=== PATIENT | male | born 1985 | race Caucasian/White ===

== ENCOUNTER 2017-12-17 00:21 | Inpatient (IN) ==
[2017-12-17] MEDS ORDERED: Etomidate Inj 40 MG/20 ML Vial IV.PUSH ONE (00:28)
[2017-12-17] MEDS ORDERED: Sod Chloride 0.9% Inj 1,000 ML IV.SIG ONE (00:34)
[2017-12-17] MEDS ORDERED: Propofol Inj 500 MG/50 ML Vial ONE (00:39)
--- NOTE | 2017-12-17 00:42 | ED ---
HPI General Chief Complaint: Overdose Stated Complaint: Overdose Time Seen by Provider: 12/17/17 00:34 Source: EMS Mode of arrival: EMS Limitations: altered mental status History of Present Illness HPI Narrative: The patient is approximately a [age]-old male who presents to the emergency department via EMS after an apparent overdose. According to EMS the patient met a female vice president business & corporate development earlier tonight, they snorted a white substance at the hotel room and then the patient became unresponsive. EMS states when they arrived the patient was unresponsive, they gave Narcan, total of 2 mg intravenously, the patient awakened. They state the patient was hypoxic with an O2 sat in the 70s via nonrebreather, and vomited several times. Upon arrival the patient is lethargic, responds to painful stimuli, but falls asleep. He was actively vomiting and was noted to be hypoxic in the 70s. No further information is obtainable from the patient. Related Data Allergies Allergy/AdvReac Type Severity Reaction Status Date / Time Unable to Assess Allergy Unknown Anaphylaxis Unverified 12/17/17 00:32 Review of Systems ROS Unobtainable ROS Unobtainable: unobtainable due to mental status PMFSH Medical History Medical History Medical history unknown (Acute) Surgical history unknown (Acute) Social History Social History Substance History: Unable to Obtain Smoking Status: Unknown if ever smoked How Often Do You Have a Drink Containing Alcohol: Unable to Obtain Recent Out of Country Travel within the Last 8 Weeks: No Immunization History Tetanus Immunization: Unable to Assess Hx Influenza Vaccine This Season: Unable to Assess Exam Narrative Exam Narrative: GENERAL: Approximately a [id number]-old male who is mostly nonresponsive, withdrawing to pain, but does not answer questions. Patient was noted to be hypoxic and vomiting. SKIN: Diaphoretic. HEAD: Atraumatic. Normocephalic. EYES: 2 mm bilateral. ENT: No nasal bleeding or discharge. Mucous membranes pink and moist. Dried emesis around the oropharynx NECK: Trachea midline. No JVD. Cardiovascular: Regular, tachycardic. Regular rate and rhythm. No murmur appreciated. RESPIRATORY: Poor respiratory effort. Diminished breath sounds bilaterally. GASTROINTESTINAL: Abdomen soft, non-tender, nondistended. MUSCULOSKELETAL: No obvious deformities. No clubbing. No cyanosis. No edema. NEUROLOGICAL: Lethargic, eyes closed, withdraws to pain. PSYCHIATRIC: Unable to assess per Procedures Intubation Time Out Performed: Yes Sedative: etomidate Mg Given: 20 Paralytic: succinylcholine Mg Given: 100 Laryngoscope: fiber optic video scope ET Tube Size: 8 ET Tube Uncuffed: No Tube Secured Depth (cm): 24 Tube Secured Location: lips Tube Placement Confirmation: visualized tube passing through cords, equal breath sounds bilaterally, no breath sounds over epigastrium and confirmation by capnometry Patient Tolerated Procedure: well Intubation Complications: none Course Initial Documented Vital Signs Pulse Rate 88 12/17/17 00:26 Respiratory Rate 12 12/17/17 00:26 Blood Pressure 151/79 H 12/17/17 00:26 Pulse Oximetry 76 L 12/17/17 00:26 Last Documented Vital Signs Pulse Rate 90 12/17/17 00:34 Respiratory Rate 20 12/17/17 00:35 Blood Pressure 151/79 H 12/17/17 00:26 Pulse Oximetry 90 L 12/17/17 01:05 Critical Care Time Critical Care Time: Yes Total Critical Care Time: 40 Attestation: Aggregate critical care time was 40 minutes. Time to perform other separately billable procedures was not included in the critical care time. My time did not include minutes spent treating any other patients simultaneously or on activities that did not directly contribute to the patient's treatment. The services I provided to this patient were to treat and/or prevent clinically significant deterioration that could result in: Anoxia, hypoxia, aspiration, arrhythmia, . I provided critical care services requiring my management, as noted below: Chart data review, documentation time, medication orders and management, vital sign assessments/reviewing monitor data, ordering and reviewing lab tests, ordering and interpreting/reviewing x-rays and diagnostic studies, care of the patient and discussion of the patient with the admitting physicians. Medical Decision Making MDM Narrative Medical decision making narrative: IV was established, labs are drawn and sent, and the patient was placed on cardiac telemetry monitoring and continuous pulse oximetry monitoring. The patient was lethargic, hypoxic with an O2 sat in the 70s and poor inspiratory effort despite 2 mg of Narcan by EMS. The patient was also vomiting. The patient was intubated to protect his airway and for hypoxia. The patient was placed on a propofol drip. Postintubation chest x- ray was obtained. Postintubation chest x-ray reveals probable ARDS/flash pulmonary edema. The patient was covered with Rocephin and Zithromax. Lactic acid was elevated, most likely secondary to hypoxia. Acetaminophen levels and salicylate levels were noted. I discussed the patient with the on-call spinner fixer, Dr. Oh, who agrees with admission. Medical Screen Exam Complete: Yes Emergency Medical Condition: Yes Differential Diagnosis Differential Diagnosis: Differential diagnosis includes accidental drug ingestion, intentional drug overdose, opiate overdose, heroin use, fentanyl use , hypoxia, aspiration, congestive heart failure, cardiomyopathy, polysubstance ingestion. Lab Data Lab results reviewed: Yes I reviewed the patient's lab results. Result diagrams: 12/17/17 01:05 12/17/17 01:05 Lab Results 12/17/17 12/17/17 12/17/17 Range/Units 01:05 01:05 01:05 WBC 10.3 (4.0-11.0) th/mm3 RBC 5.08 (4.50-5.90) mil/mm3 Hgb 16.2 (13.0-17.0) gm/dL Hct 46.8 (39.0-51.0) % MCV 92.2 (80.0-100.0) fL MCH 31.9 (27.0-34.0) pg MCHC 34.6 (32.0-36.0) % RDW 12.8 (11.6-17.2) % Plt Count 409 (150-450) th/mm3 MPV 8.5 (7.0-11.0) fL Neut % (Auto) 44.1 (16.0-70.0) % Lymph % (Auto) 48.6 H (9.0-44.0) % [place] % (Auto) 6.7 (0.0-8.0) % Eos % (Auto) 0.4 (0.0-4.0) % Baso % (Auto) 0.2 (0.0-2.0) % Neut # (Auto) 4.5 (1.8-7.7) th/mm3 Lymph # (Auto) 5.0 H (1.0-4.8) th/mm3 [place] # (Auto) 0.7 (0.0-0.9) th/mm3 Eos # (Auto) 0.0 (0.0-0.4) th/mm3 Baso # (Auto) 0.0 (0.0-0.2) th/mm3 WBC Differential . Differential Comment Auto diff final PT 10.9 (9.8-11.6) sec INR 1.1 Ratio Puncture Site Patient Temperature O2 Saturation (90-100) % ABG pH (7.380-7.420) ABG pCO2 (38-42) mmHg ABG pO2 (61-120) mmHg ABG HCO3 (22-26) mmol/L ABG O2 Content (12.0-20.0) Vol % ABG Base Excess (-2-2) mmol/L ABG Methemoglobin (0-2) % Jeancarlos Test Hemoglobin (12.0-16.0) G/DL Carboxyhemoglobin (0-4) % O2 Delivery Device Vent Setting Inspired O2 % Critical Value Sodium 148 H (136-145) meq/L Potassium 3.3 L (3.5-5.1) meq/L Chloride 109 H (98-107) meq/L Carbon Dioxide 20.4 L (21.0-32.0) meq/L Anion Gap 19 H (5-15) meq/L BUN 15 (7-18) mg/dL Creatinine 1.44 H (0.60-1.30) mg/dL Estimated GFR 42 L (>89) mL/min Random Glucose 152 H (74-106) mg/dL Lactic Acid (0.4-2.0) mmol/L Calcium 7.8 L (8.5-10.1) mg/dL Total Bilirubin 0.4 (0.2-1.0) mg/dL AST 22 (15-37) U/L ALT 52 (12-78) U/L Alkaline Phosphatase 95 (45-117) U/L Troponin I Less than 0.02 L (0.02-0.05) ng/mL Total Protein 7.8 (6.4-8.2) g/dL Albumin 4.4 (3.4-5.0) g/dL Urine Color (Yellw/Straw) Urine Clarity (Clear) Urine pH (5.0-8.5) Ur Specific [place] (1.002-1.035) Urine Protein (Neg-Trace) mg/dL Urine Glucose (UA) (Negative) mg/dL Urine Ketones (Negative) mg/dL Urine Occult Blood (Negative) Urine Nitrate (Negative) Urine Bilirubin (Negative) Urine Urobilinogen (Less than 2) mg/dL Ur Leukocyte Esterase (Negative) Urine RBC (0-3) /hpf Urine WBC (0-5) /hpf Ur Squamous Epith Cells (0-5) /hpf Urine Bacteria (None) /hpf Urine Mucus (Occasional) /lpf Micro UA Comment Ur Microscopic Review Urine Culture Comments Salicylates (2.8-20.0) mg/dL Urine Opiates Screen (Neg) Acetaminophen Less than 2.0 L (10.0-30.0) mcg/mL Ur Barbiturates Screen (Neg) Ur Amphetamines Screen (Neg) U Benzodiazepines Scrn (Neg) Urine Cocaine Screen (Neg) U Cannabinoids Screen (Neg) Serum Alcohol 186 H (0-5) mg/dL 12/17/17 12/17/17 12/17/17 Range/Units 01:05 01:05 01:17 WBC (4.0-11.0) th/mm3 RBC (4.50-5.90) mil/mm3 Hgb (13.0-17.0) gm/dL Hct (39.0-51.0) % MCV (80.0-100.0) fL MCH (27.0-34.0) pg MCHC (32.0-36.0) % RDW (11.6-17.2) % Plt Count (150-450) th/mm3 MPV (7.0-11.0) fL Neut % (Auto) (16.0-70.0) % Lymph % (Auto) (9.0-44.0) % [place] % (Auto) (0.0-8.0) % Eos % (Auto) (0.0-4.0) % Baso % (Auto) (0.0-2.0) % Neut # (Auto) (1.8-7.7) th/mm3 Lymph # (Auto) (1.0-4.8) th/mm3 [place] # (Auto) (0.0-0.9) th/mm3 Eos # (Auto) (0.0-0.4) th/mm3 Baso # (Auto) (0.0-0.2) th/mm3 WBC Differential Differential Comment PT (9.8-11.6) sec INR Ratio Puncture Site Left radial Patient Temperature 98.6 O2 Saturation 84 L* (90-100) % ABG pH 7.21 L* (7.380-7.420) ABG pCO2 51 H* (38-42) mmHg ABG pO2 61 (61-120) mmHg ABG HCO3 20 L (22-26) mmol/L ABG O2 Content 18.5 (12.0-20.0) Vol % ABG Base Excess -6.9 L (-2-2) mmol/L ABG Methemoglobin 0.9 (0-2) % Jeancarlos Test Present Hemoglobin 15.8 (12.0-16.0) G/DL Carboxyhemoglobin 1.4 (0-4) % O2 Delivery Device Ventilator Vent Setting See comments Inspired O2 100 % Critical Value Yes Sodium (136-145) meq/L Potassium (3.5-5.1) meq/L Chloride (98-107) meq/L Carbon Dioxide (21.0-32.0) meq/L Anion Gap (5-15) meq/L BUN (7-18) mg/dL Creatinine (0.60-1.30) mg/dL Estimated GFR (>89) mL/min Random Glucose (74-106) mg/dL Lactic Acid 6.0 H* (0.4-2.0) mmol/L Calcium (8.5-10.1) mg/dL Total Bilirubin (0.2-1.0) mg/dL AST (15-37) U/L ALT (12-78) U/L Alkaline Phosphatase (45-117) U/L Troponin I (0.02-0.05) ng/mL Total Protein (6.4-8.2) g/dL Albumin (3.4-5.0) g/dL Urine Color (Yellw/Straw) Urine Clarity (Clear) Urine pH (5.0-8.5) Ur Specific [place] (1.002-1.035) Urine Protein (Neg-Trace) mg/dL Urine Glucose (UA) (Negative) mg/dL Urine Ketones (Negative) mg/dL Urine Occult Blood (Negative) Urine Nitrate (Negative) Urine Bilirubin (Negative) Urine Urobilinogen (Less than 2) mg/dL Ur Leukocyte Esterase (Negative) Urine RBC (0-3) /hpf Urine WBC (0-5) /hpf Ur Squamous Epith Cells (0-5) /hpf Urine Bacteria (None) /hpf Urine Mucus (Occasional) /lpf Micro UA Comment Ur Microscopic Review Urine Culture Comments Salicylates 1.9 L (2.8-20.0) mg/dL Urine Opiates Screen (Neg) Acetaminophen (10.0-30.0) mcg/mL Ur Barbiturates Screen (Neg) Ur Amphetamines Screen (Neg) U Benzodiazepines Scrn (Neg) Urine Cocaine Screen (Neg) U Cannabinoids Screen (Neg) Serum Alcohol (0-5) mg/dL 12/17/17 12/17/17 Range/Units 01:30 01:30 WBC (4.0-11.0) th/mm3 RBC (4.50-5.90) mil/mm3 Hgb (13.0-17.0) gm/dL Hct (39.0-51.0) % MCV (80.0-100.0) fL MCH (27.0-34.0) pg MCHC (32.0-36.0) % RDW (11.6-17.2) % Plt Count (150-450) th/mm3 MPV (7.0-11.0) fL Neut % (Auto) (16.0-70.0) % Lymph % (Auto) (9.0-44.0) % [place] % (Auto) (0.0-8.0) % Eos % (Auto) (0.0-4.0) % Baso % (Auto) (0.0-2.0) % Neut # (Auto) (1.8-7.7) th/mm3 Lymph # (Auto) (1.0-4.8) th/mm3 [place] # (Auto) (0.0-0.9) th/mm3 Eos # (Auto) (0.0-0.4) th/mm3 Baso # (Auto) (0.0-0.2) th/mm3 WBC Differential Differential Comment PT (9.8-11.6) sec INR Ratio Puncture Site Patient Temperature O2 Saturation (90-100) % ABG pH (7.380-7.420) ABG pCO2 (38-42) mmHg ABG pO2 (61-120) mmHg ABG HCO3 (22-26) mmol/L ABG O2 Content (12.0-20.0) Vol % ABG Base Excess (-2-2) mmol/L ABG Methemoglobin (0-2) % Jeancarlos Test Hemoglobin (12.0-16.0) G/DL Carboxyhemoglobin (0-4) % O2 Delivery Device Vent Setting Inspired O2 % Critical Value Sodium (136-145) meq/L Potassium (3.5-5.1) meq/L Chloride (98-107) meq/L Carbon Dioxide (21.0-32.0) meq/L Anion Gap (5-15) meq/L BUN (7-18) mg/dL Creatinine (0.60-1.30) mg/dL Estimated GFR (>89) mL/min Random Glucose (74-106) mg/dL Lactic Acid (0.4-2.0) mmol/L Calcium (8.5-10.1) mg/dL Total Bilirubin (0.2-1.0) mg/dL AST (15-37) U/L ALT (12-78) U/L Alkaline Phosphatase (45-117) U/L Troponin I (0.02-0.05) ng/mL Total Protein (6.4-8.2) g/dL Albumin (3.4-5.0) g/dL Urine Color Yellow (Yellw/Straw) Urine Clarity Hazy H (Clear) Urine pH 5.0 (5.0-8.5) Ur Specific [place] 1.023 (1.002-1.035) Urine Protein 30 H (Neg-Trace) mg/dL Urine Glucose (UA) Negative (Negative) mg/dL Urine Ketones Negative (Negative) mg/dL Urine Occult Blood Small H (Negative) Urine Nitrate Negative (Negative) Urine Bilirubin Negative (Negative) Urine Urobilinogen Less than 2 (Less than 2) mg/dL Ur Leukocyte Esterase Negative (Negative) Urine RBC 6 H (0-3) /hpf Urine WBC 2 (0-5) /hpf Ur Squamous Epith Cells <1 (0-5) /hpf Urine Bacteria Rare H (None) /hpf Urine Mucus Few H (Occasional) /lpf Micro UA Comment Cath-culture ind Ur Microscopic Review Not Reportable Urine Culture Comments Cath-cult indicated Salicylates (2.8-20.0) mg/dL Urine Opiates Screen Neg (Neg) Acetaminophen (10.0-30.0) mcg/mL Ur Barbiturates Screen Neg (Neg) Ur Amphetamines Screen Neg (Neg) U Benzodiazepines Scrn Neg (Neg) Urine Cocaine Screen Neg (Neg) U Cannabinoids Screen Neg (Neg) Serum Alcohol (0-5) mg/dL Imaging Data Attestation: I personally reviewed and interpreted this imaging study as follows : My impression: Probable ARDS and/or flash pulmonary edema Radiologist's impression: Chest X-Ray 12/17/17 00:34 CONCLUSION: Bilateral pulmonary infiltrates. Discharge Plan Discharge Disposition Patient Disposition: 30 Still Patient Discharge Condition Condition: Critical Discharge Details Diagnosis: Acute respiratory distress, Hypoxia, Acidosis, lactic Physicians Team ED Provider: Edilson Mojica Primary Care Provider: UNKNOWN, Discharge Interventions Interventions: Vital Signs Last Done: 12/17/17 00:36 Status ED Status: Pending Admission
[2017-12-17] MEDS: Propofol 1000 mg/100 ml Inj 1,000 MG/100 ML BOTTLE IV.CONT PRN ×2 (00:43→07:47)
--- NOTE | 2017-12-17 01:18 | XR ---
EXAM DATE: 12/17/2017 1:15 AM EDT AGE/SEX: 89 years / Male INDICATIONS: E-T Tube placement. Possible overdose. CLINICAL DATA: This is the patient's initial encounter. Patient reports that signs and symptoms have been present for 1 day and indicates a pain score of Nonresponsive. MEDICAL/SURGICAL HISTORY: Non-responsive. Non-responsive. COMPARISON: No prior exams available for comparison. FINDINGS: A single AP view of the chest demonstrates bilateral pulmonary infiltrates. No effusions. Heart is no rmal in size. Tip the endotracheal tube 3 cm from the rob. Nasogastric tube coiled in the stomach. CONCLUSION: Bilateral pulmonary infiltrates. Electronically signed by: Durga Conway MD 12/17/2017 1:17 AM EDT
[2017-12-17 01:22] LABS: Baso % (Auto) 0.2 % (0.0-2.0); Eos % (Auto) 0.4 % (0.0-4.0); Hematocrit 46.8 % (39.0-51.0); Hemoglobin 16.2 gm/dL (13.0-17.0); Lymph % (Auto) 48.6 % (9.0-44.0); Mean Corpuscular HGB Conc 34.6 % (32.0-36.0); Mean Corpuscular Hemoglobin 31.9 pg (27.0-34.0); Mean Corpuscular Volume 92.2 fL (80.0-100.0); Mean Platelet Volume 8.5 fL (7.0-11.0); Mono # (Auto) 0.7 th/mm3 (0.0-0.9); Mono % (Auto) 6.7 % (0.0-8.0); Neut # (Auto) 4.5 th/mm3 (1.8-7.7); Neut % (Auto) 44.1 % (16.0-70.0); Platelet Count 409 th/mm3 (150-450); Red Blood Count 5.08 mil/mm3 (4.50-5.90); Red Cell Distribution Width 12.8 % (11.6-17.2); White Blood Count 10.3 th/mm3 (4.0-11.0)
[2017-12-17 01:32] LABS: INR 1.1 Ratio; Prothrombin Time 10.9 sec (9.8-11.6)
[2017-12-17] MEDS ORDERED: Azithromycin Inj 500 MG in Sodium Chlor 0.9% Inj 250 ML IV.SIG ONE (01:38)
[2017-12-17 01:39] LABS: ABG Base Excess -6.9 mmol/L (-2-2); ABG PCO2 51 mmHg (38-42); ABG PO2 61 mmHg (61-120)
[2017-12-17 01:42] LABS: Albumin 4.4 g/dL (3.4-5.0); Anion Gap 19 meq/L (5-15); Aspartate Aminotransferase 22 U/L (15-37); Blood Urea Nitrogen 15 mg/dL (7-18); Calcium 7.8 mg/dL (8.5-10.1); Carbon Dioxide 20.4 meq/L (21.0-32.0); Chloride 109 meq/L (98-107); Glomerular Filtration Rate 42 mL/min (>89); Glucose,Random 152 mg/dL (74-106); Potassium 3.3 meq/L (3.5-5.1); Sodium 148 meq/L (136-145)
[2017-12-17 01:48] LABS: Alanine Aminotransferase 52 U/L (12-78); Alkaline Phosphatase 95 U/L (45-117); Total Protein 7.8 g/dL (6.4-8.2)
[2017-12-17 01:50] LABS: Alcohol 186 mg/dL (0-5)
[2017-12-17 02:01] LABS: Amphetamine Screen,Urine Neg (Neg); Bacteria,Urine Rare /hpf; Barbiturate Screen,Urine Neg (Neg); Bilirubin,Urine Negative (Negative); Cannabinoid Screen,Urine Neg (Neg); Clarity,Urine Hazy (Clear); Cocaine Screen,Urine Neg (Neg); Color,Urine Yellow (Yellw/Straw); Glucose,Urine (UA) Negative (Negative); Leukocyte Esterase,Urine Negative (Negative); Mucus,Urine Few /lpf (Occasional); Nitrite,Urine Negative (Negative); Specific Gravity,Urine 1.023 (1.002-1.035); Squamous Epithelial Cell,Urine <1 /hpf (0-5)
[2017-12-17 02:06] LABS: Opiate Screen,Urine Neg (Neg)
[2017-12-17] MEDS ORDERED: Morphine Inj 4 MG/ML Vial IV.PUSH PRN (02:49)
[2017-12-17] MEDS ORDERED: Bisacodyl 10 MG Supp RECTAL PRN (02:49)
--- NOTE | 2017-12-17 03:04 | P.HPCC ---
History of Present Illness Primary Care Physician: UNKNOWN History of Present Illness: 32 [id number] male presents via EMS after an apparent overdose. According to EMS the patient met a female trouble locator test desk earlier tonight, they snorted a white substance at the hotel room and then the patient became unresponsive. EMS states when they arrived the patient was unresponsive, they gave Narcan, total of 2 mg intravenously, the patient awakened. They state the patient was hypoxic with an O2 sat in the 70s via nonrebreather, and vomited several times. Upon arrival the patient was lethargic, responds to painful stimuli, but falls asleep. He was actively vomiting and was noted to be hypoxic in the 70s. The patient was intubated by ED attending, will be protection and respiratory failure. Chest x-ray shows pattern of flash pulmonary edema typical for heroine overdose. No further information is obtainable from the patient. Inpatient Certification: I certify that the inpatient services were ordered in accordance with Medicare regulations governing the order. This includes certification that hospital inpatient services are reasonable and necessary and in the case of services not specified as inpatient-only under 42 CFR 419.22(n), that they are appropriately provided as inpatient services in accordance to with the 2-midnight benchmark under 43 CFR 412.3(e) Estimated Total Length of Stay (Days): 5 Plans for Post Hospital Care: Not yet determined Review of Systems unobtainable due to endotracheal tube PMFSH - History History Provided By: Trauma Director / EMT - Medical History Medical History: Medical History (Last Updated 12/17/17 @ 00:28 by Magalys [place]) Medical history unknown Surgical history unknown - Tobacco History Smoking Status: Unknown if ever smoked - Alcohol History How Often Do You Have a Drink Containing Alcohol: Unable to Obtain - Substance Use History Substance History: Unable to Obtain - Travel History Recent Travel Out of the Country Within the Last 8 Weeks: No - Immunization History Tetanus Immunization: Unable to Assess Hx Influenza Vaccine This Season: Unable to Assess Medications and Allergies Active Medications: Active Medications Acetaminophen (Tylenol) 650 mg PO Q6H PRN PRN Reason: PAIN 1-10 AND/OR FEVER >101F Al Hydroxide/Mg Hydroxide (Milk Of Magnesia Liq) 30 ml PO Q12H PRN PRN Reason: Mild Constipation Albuterol (Duoneb Neb (Prn)) 1 ampul NEB Q2HR NEB PRN PRN Reason: WHEEZING Bisacodyl (Dulcolax Supp) 10 mg RECTAL DAILY PRN PRN Reason: SEVERE CONSITIPATION Chlorhexidine Gluconate (Peridex 0.12% Oral Kit) 15 ml OROPHARYNG BID@0800, 2000 [facility] Chlorhexidine Gluconate (Chlorhexidine 2% Cloth) 3 pack TOPICAL DAILY@0400 DIANN Stop: 12/22/17 03:59 Chlorhexidine Gluconate (Chlorhexidine 2% Cloth) 3 pack TOPICAL DAILY@0400 PRN PRN Reason: Extra cloth needed Stop: 12/22/17 03:59 Enoxaparin Sodium (Lovenox Inj) 40 mg SQ Q24H [facility] Famotidine (Pepcid Pf Inj) 20 mg IV.PUSH Q12HR [facility] Propofol (Diprivan 1000 Mg/100 Ml Inj) 1,000 mg in 100 mls @ 2.449 mls/hr IV.CONT TITRATE PRN; Protocol PRN Reason: Per Protocol Last Titration: 12/17/17 02:33 Dose: 20 mcg/kg/min, 9.8 mls/hr Sodium Chloride (Ns Inj) 1,000 mls @ 84 mls/hr IV.CONT .[id number] [facility] Lactulose (Lactulose Liq) 30 ml PO DAILY PRN PRN Reason: SEVERE CONSITIPATION Metoclopramide HCl (Reglan Inj) 5 mg IV.PUSH Q6HR DIANN; Protocol Morphine Sulfate (Morphine Inj) 2 mg IV.PUSH Q2H PRN PRN Reason: PAIN SCALE 6 TO 10 Ondansetron HCl (Zofran Inj) 4 mg IV.PUSH Q6H PRN PRN Reason: NAUSEA OR VOMITING Senna/Docusate Sodium (Ladonna-Colace) 1 tab PO BID [facility] Sennosides (Senokot) 17.2 mg PO Q12H PRN PRN Reason: Moderate Constipation Sodium Chloride (Ns Flush) 2 ml IV.FLUSH BID [facility] Sodium Chloride (Ns Flush) 2 ml IV.FLUSH PRN PRN PRN Reason: FLUSH AFTER USING IV ACCESS Allergies Allergy/AdvReac Type Severity Reaction Status Date / Time Unable to Assess Allergy Unknown Anaphylaxis Unverified 12/17/17 00:32 Results - Labs CBC & Chem 7: 12/17/17 01:05 12/17/17 01:05 Labs: Short CBC 12/17/17 Range/Units 01:05 WBC 10.3 (4.0-11.0) th/mm3 Hgb 16.2 (13.0-17.0) gm/dL Hct 46.8 (39.0-51.0) % Plt Count 409 (150-450) th/mm3 BMP 12/17/17 01:05 Sodium 148 H Potassium 3.3 L Chloride 109 H Carbon Dioxide 20.4 L BUN 15 Creatinine 1.44 H Calcium 7.8 L Cardiac Enzymes 12/17/17 Range/Units 01:05 Troponin I Less than 0.02 L (0.02-0.05) ng/mL Liver Function 12/17/17 Range/Units 01:05 Total Bilirubin 0.4 (0.2-1.0) mg/dL AST 22 (15-37) U/L ALT 52 (12-78) U/L Alkaline Phosphatase 95 (45-117) U/L Albumin 4.4 (3.4-5.0) g/dL Urine 12/17/17 Range/Units 01:30 Urine Color Yellow (Yellw/Straw) Urine Clarity Hazy H (Clear) Urine pH 5.0 (5.0-8.5) Ur Specific [place] 1.023 (1.002-1.035) Urine Protein 30 H (Neg-Trace) mg/dL Urine Glucose (UA) Negative (Negative) mg/dL - Imaging Impressions Chest X-Ray 12/17/17 00:34 CONCLUSION: Bilateral pulmonary infiltrates. Exam Vital signs: Vital Signs 12/17/17 00:26 12/17/17 00:34 12/17/17 00:35 Temperature 98.0 F Pulse Rate 88 90 Respiratory Rate 12 20 Blood Pressure 151/79 H Pulse Oximetry 76 L 80 L 12/17/17 00:36 12/17/17 00:48 12/17/17 01:05 Temperature Pulse Rate 102 H Respiratory Rate 18 Blood Pressure 155/60 H Pulse Oximetry 89 L 92 L 90 L 12/17/17 01:35 12/17/17 02:00 Temperature Pulse Rate 98 H 105 H Respiratory Rate 20 20 Blood Pressure 140/61 143/55 H Pulse Oximetry 90 L 90 L Intake & Output 12/16/17 12/16/17 12/17/17 06:59 18:59 06:59 Weight 81.647 kg - Constitutional mild distress - Routine HEENT Exam Head: Present: normocephalic, atraumatic Eye: Present: PERRL ENT: Present: mucous membranes moist - Routine Neck Exam Absent: JVD, carotid bruit - Routine Respiratory Exam Present: patient mechanically ventilated, rhonchi. Absent: stridor, wheezes - Routine Cardiovascular Exam Present: RRR, S1, S2 - Routine Abdominal Exam Present: soft, normoactive bowel sounds. Absent: tenderness, distended - Routine Extremities Exam Absent: cyanosis, clubbing, edema - Routine Skin Exam Present: intact. Absent: cyanosis, erythema - Routine Neurological Exam Present: moving all extremities Caprini VTE Risk Assessment Caprini VTE Risk Assessment: Moderate/High Risk (score >= 2) Caprini Risk Assessment Model: Point Value = 1 Point Value = 2 Point Value = 3 Point Value = 5 Age 41-60 Minor surgery BMI > 25 kg/m2 Swollen legs Varicose veins or History of unexplained or recurrent spontaneous Oral contraceptives or hormone replacement Sepsis (< 1 month) Serious lung disease, including pneumonia (< 1 month) Abnormal pulmonary function Acute myocardial infarction Congestive heart failure (< 1 month) History of inflammatory bowel disease Medical patient at bed rest Age 61-74 Arthroscopic surgery Major open surgery (> 45 min) Laparoscopic surgery (> 45 min) Malignancy Confined to bed (> 72 hours) Immobilizing plaster cast Central venous access Age >= 75 History of VTE Family history of VTE Factor V Leiden Prothrombin [id number] Lupus anticoagulant Anticardiolipin antibodies Elevated serum homocysteine Heparin-induced thrombocytopenia Other congenital or acquired thrombophilia Stroke (< 1 month) Elective arthroplasty Hip, pelvis, or leg fracture Acute spinal cord injury (< 1 month) Prophylaxis Regimen: Total Risk Factor Score Risk Level Prophylaxis Regimen 0-1 Low Early ambulation 2 Moderate Order ONE of the following: *Sequential Compression Device (SCD) *Heparin 5000 units SQ BID 3-4 Higher Order ONE of the following medications: *Heparin 5000 units SQ TID *Enoxaparin/Lovenox 40 mg SQ daily (WT < 150 kg, CrCl > 30 mL/min) *Enoxaparin/Lovenox 30 mg SQ daily (WT < 150 kg, CrCl > 10-29 mL/min) *Enoxaparin/Lovenox 30 mg SQ BID (WT < 150 kg, CrCl > 30 mL/min) AND/OR *Sequential Compression Device (SCD) 5 or more Highest Order ONE of the following medications: *Heparin 5000 units SQ TID (Preferred with Epidurals) *Enoxaparin/Lovenox 40 mg SQ daily (WT < 150 kg, CrCl > 30 mL/min) *Enoxaparin/Lovenox 30 mg SQ daily (WT < 150 kg, CrCl > 10-29 mL/min) *Enoxaparin/Lovenox 30 mg SQ BID (WT < 150 kg, CrCl > 30 mL/min) AND *Sequential Compression Device (SCD) Assessment and Plan - Assessment and Plan Plan: Respiratory failure -Intubated for airway protection -Mechanical ventilation -Vent bundle -SBT daily Altered mental status -Toxicology screen pending -Most likely heroine overdose -Supportive care Pulmonary edema -Heroine overdose -Mechanical ventilation and supportive care Heroine abuse -Monitor for withdrawal -Neuro checks per unit protocol DVT GI prophylaxis -Teds SCDs -Subcu Lovenox -Pepcid 35 minutes of critical care
[2017-12-17] MEDS ORDERED: Potassium Chlor 40 mEq Premix 40 MEQ/100 ML PIGGYBACK IV.SIG PRN ×2 (03:07)
[2017-12-17] MEDS ORDERED: Potassium Phosphate 500 MG Soluble Tablet PO PRN ×2 (03:07)
[2017-12-17] MEDS ORDERED: Magnesium Sulfate Inj 4 GM in Sodium Chlor 0.9% Inj 92 ML IV.SIG PRN (03:07)
[2017-12-17] MEDS ORDERED: Potassium Phosphate Inj 30 MMOL in Sodium Chlor 0.9% Inj 250 ML IV.SIG PRN (03:07)
[2017-12-17] MEDS ORDERED: Sodium Phosphate Inj 30 MMOL in Sodium Chlor 0.9% Inj 250 ML IV.SIG PRN (03:07)
[2017-12-17] MEDS ORDERED: Potassium Chloride 25 MEQ Effervescent Tablet PO PRN (03:07)
[2017-12-17] MEDS ORDERED: Magnesium Oxide 400 MG Tablet PO PRN (03:07)
[2017-12-17] MEDS ORDERED: Magnesium Sulfate Inj 2 GM in Sodium Chlor 0.9% Inj 96 ML IV.SIG PRN (03:07)
[2017-12-17] MEDS ORDERED: Potassium Chlor 20 mEq Premix 20 MEQ/100 ML PIGGYBACK IV.SIG PRN (03:07)
[2017-12-17] MEDS ORDERED: Midazolam 50 MG/50 ML Inj 50 MG/50 ML BAG IV.CONT PRN (03:50)
[2017-12-17] MEDS ORDERED: Chlorhexidine Gluconate 2% 1 Pack (2 Cloths) TOPICAL PRN (04:00)
[2017-12-17] MEDS: Sod Chloride 0.9% Inj 1,000 ML IV.CONT SCH ×2 (04:55→17:12)
[2017-12-17] MEDS: Chlorhexidine Gluconate 2% 1 Pack (2 Cloths) TOPICAL SCH (04:55)
[2017-12-17] MEDS: Enoxaparin Inj 40 MG/0.4 ML Syringe SQ SCH (04:57)
[2017-12-17] MEDS: Oral Hygiene Kit OROPHARYNG SCH ×3 (04:57→17:11)
[2017-12-17] MEDS: Potassium Chlor 20 mEq Premix 20 MEQ/100 ML PIGGYBACK IV.SIG PRN ×2 (05:13→07:30)
[2017-12-17 06:47] LABS: ABG Base Excess -5.8 mmol/L (-2-2); ABG PCO2 38 mmHg (38-42); ABG PO2 102 mmHg (61-120)
[2017-12-17] MEDS: Famotidine PF Inj 20 MG/2 ML Vial IV.PUSH SCH ×2 (08:01→21:07)
[2017-12-17] MEDS: Chlorhexidine 0.12% Oral Kit 15 ML UDC OROPHARYNG SCH ×2 (08:54→20:04)
[2017-12-17] MEDS: Senna/Docusate Sodium 8.6/50 MG Tablet PO SCH ×2 (08:54→21:07)
[2017-12-17] MEDS: Acetaminophen 325 MG Tablet PO PRN ×2 (10:21→21:06)
[2017-12-17] MEDS: Piperacil/Tazo 3.375 GM Premix 50 ML IV.SIG SCH ×2 (12:02→17:46)
--- NOTE | 2017-12-17 15:33 | ECG ---
Date Performed: 12/17/2017 Time Performed: 09:27:11 PTAGE: 89 years EKG: SINUS TACHYCARDIA ABNORMAL RHYTHM ECG NO PREVIOUS TRACING DOCTOR: Taiwo Bella Interpretating Date/Time 12/17/2017 15:31:34
[2017-12-18] MEDS: Oral Hygiene Kit OROPHARYNG SCH ×4 (00:10→15:47)
[2017-12-18] MEDS: Piperacil/Tazo 3.375 GM Premix 50 ML IV.SIG SCH ×4 (02:10→17:18)
[2017-12-18] MEDS: Enoxaparin Inj 40 MG/0.4 ML Syringe SQ SCH (02:31)
[2017-12-18 04:07] LABS: Baso % (Auto) 0.3 % (0.0-2.0); Eos # (Auto) 0.2 th/mm3 (0.0-0.4); Eos % (Auto) 1.4 % (0.0-4.0); Hematocrit 38.4 % (39.0-51.0); Hemoglobin 13.2 gm/dL (13.0-17.0); Lymph # (Auto) 1.3 th/mm3 (1.0-4.8); Mean Corpuscular HGB Conc 34.4 % (32.0-36.0); Mean Corpuscular Hemoglobin 31.4 pg (27.0-34.0); Mean Corpuscular Volume 91.3 fL (80.0-100.0); Mean Platelet Volume 8.1 fL (7.0-11.0); Mono # (Auto) 0.6 th/mm3 (0.0-0.9); Mono % (Auto) 4.7 % (0.0-8.0); Neut # (Auto) 10.9 th/mm3 (1.8-7.7); Neut % (Auto) 83.6 % (16.0-70.0); Platelet Count 213 th/mm3 (150-450); Red Blood Count 4.21 mil/mm3 (4.50-5.90); Red Cell Distribution Width 12.6 % (11.6-17.2); White Blood Count 13.1 th/mm3 (4.0-11.0)
[2017-12-18 04:11] LABS: INR 1.2 Ratio; Prothrombin Time 12.5 sec (9.8-11.6)
[2017-12-18] MEDS: Chlorhexidine Gluconate 2% 1 Pack (2 Cloths) TOPICAL SCH (04:18)
[2017-12-18 04:31] LABS: Alanine Aminotransferase 33 U/L (12-78); Albumin 3.4 g/dL (3.4-5.0); Alkaline Phosphatase 71 U/L (45-117); Anion Gap 8 meq/L (5-15); Aspartate Aminotransferase 17 U/L (15-37); Blood Urea Nitrogen 16 mg/dL (7-18); Calcium 8.5 mg/dL (8.5-10.1); Carbon Dioxide 29.5 meq/L (21.0-32.0); Chloride 105 meq/L (98-107); Glomerular Filtration Rate 58 mL/min (>89); Glucose,Random 136 mg/dL (74-106); Phosphorus 1.7 mg/dL (2.5-4.9); Potassium 3.7 meq/L (3.5-5.1); Sodium 142 meq/L (136-145); Total Protein 6.3 g/dL (6.4-8.2)
--- NOTE | 2017-12-18 07:24 | P.PN ---
Subjective Interval history: Patient seen and examined this morning, their vitals are stable and the patient is afebrile. Patient drowsy but awakens easily. States he thought he was doing heroin, which he has done in the past, but it was something else. He has no idea what kind of drug it was. He denies thoughts of wanting to harm himself. Reports the nasal canula makes it hard to breath. He reports also consuming alcohol while doing the drugs. Physical Exam Vital signs: Vital Signs 12/17/17 08:00 12/17/17 08:27 12/17/17 09:00 Temperature 100.5 F H Pulse Rate 117 H 116 H Respiratory Rate 9 L 18 Blood Pressure 117/67 Pulse Oximetry 93 L 94 L 12/17/17 12:00 12/17/17 16:00 12/17/17 20:00 Temperature 99.6 F 99.5 F 98.7 F Pulse Rate 121 H 106 H 90 Respiratory Rate 30 H 24 22 Blood Pressure 138/68 127/71 117/71 Pulse Oximetry 93 L 94 L 97 12/17/17 20:44 12/17/17 21:36 12/17/17 22:00 Temperature Pulse Rate 85 Respiratory Rate 18 Blood Pressure Pulse Oximetry 95 12/18/17 00:00 12/18/17 02:00 12/18/17 04:00 Temperature Pulse Rate 83 81 71 Respiratory Rate 18 18 Blood Pressure Pulse Oximetry Intake & Output 12/17/17 12/18/17 12/18/17 18:59 06:59 18:59 Intake Total 1200 / 1200 175 / 175 Output Total 1949 Balance -750 / -750 175 / 175 Intake: IV 350 / 350 175 / 175 Diprivan 1000 mg/100 ml Inj 1, 100 / 100 25 / 25 000 mg In 100 ml @ 5 MCG/KG/MIN 2.449 mls/hr IV.CONT TITRATE PRN Rx#:[id number] Zosyn 3.375 GM Premix 50 ML @ 50 / 50 150 / 150 100 mls/hr IV.SIG Q6H DIANN Rx#: [id number] KCl 20 mEq Premix Inj 20 meq In 200 / 200 100 ml @ 50 mls/hr IV.SIG Q2H PRN Rx#:[id number] Oral 850 / 850 Output: Urine Amount (Catheter) 1949 Indwelling Urethral Catheter 1949 Narrative: GENERAL: Well-appearing, no acute distress, drowsy but awakens easily SKIN: Warm and dry. HEAD: Normocephalic. EYES: No scleral icterus. No injection or drainage. NECK: Supple, trachea midline. No JVD or lymphadenopathy. CARDIOVASCULAR: Regular rate and rhythm without murmurs, gallops, or rubs. RESPIRATORY: Breath sounds equal bilaterally. No accessory muscle use. GASTROINTESTINAL: Abdomen soft, non-tender, nondistended. MUSCULOSKELETAL: No cyanosis, or edema. - Urinary Catheter Management Indwelling Urethral Catheter Cath placed during this visit: yes, but has since been removed by the nurse Reason for continuing: Decision to DC catheter Insertion date: 12/17/17 Insertion time: 01:00 Removal date: 12/17/17 Removal time: 17:45 Results - Labs CBC & Chem 7: 12/18/17 03:50 12/18/17 03:50 Laboratory Results - last 24 hr 12/18/17 12/18/17 12/18/17 03:50 03:50 03:50 WBC 13.1 H RBC 4.21 L Hgb 13.2 D Hct 38.4 L MCV 91.3 MCH 31.4 MCHC 34.4 RDW 12.6 Plt Count 213 D MPV 8.1 Neut % (Auto) 83.6 H Lymph % (Auto) 10.0 [place] % (Auto) 4.7 Eos % (Auto) 1.4 Baso % (Auto) 0.3 Neut # (Auto) 10.9 H Lymph # (Auto) 1.3 [place] # (Auto) 0.6 Eos # (Auto) 0.2 Baso # (Auto) 0.0 WBC Differential . Differential Comment Auto diff final PT 12.5 H INR 1.2 Sodium 142 Potassium 3.7 Chloride 105 Carbon Dioxide 29.5 D Anion Gap 8 BUN 16 Creatinine 1.10 Estimated GFR 58 L Random Glucose 136 H Lactic Acid Calcium 8.5 Phosphorus 1.7 L Magnesium 2.0 Total Bilirubin 1.7 H AST 17 ALT 33 Alkaline Phosphatase 71 Total Protein 6.3 L D Albumin 3.4 D 12/18/17 03:50 WBC RBC Hgb Hct MCV MCH MCHC RDW Plt Count MPV Neut % (Auto) Lymph % (Auto) [place] % (Auto) Eos % (Auto) Baso % (Auto) Neut # (Auto) Lymph # (Auto) [place] # (Auto) Eos # (Auto) Baso # (Auto) WBC Differential Differential Comment PT INR Sodium Potassium Chloride Carbon Dioxide Anion Gap BUN Creatinine Estimated GFR Random Glucose Lactic Acid 1.1 Calcium Phosphorus Magnesium Total Bilirubin AST ALT Alkaline Phosphatase Total Protein Albumin Microbiology 12/17/17 03:50 Sputum - Endotracheal Gram Stain - Final - Imaging ITS Impressions Chest X-Ray 12/17/17 00:34 CONCLUSION: Bilateral pulmonary infiltrates. Assessment and Plan - Plan In summary this is a Ihsan Fierro who was brought to [place] ED by EMS for apparent overdose. Patient was apparently found at a hotel room unresponsive, he was given IV Narcan and the patient awakens. Upon arrival to the ER he was lethargic, actively vomiting, and saturating in the 70s. He was intubated. Chest x-ray showed flash pulmonary edema, typically seen for heroine overdose. Patient was admitted by critical care, and then care transferred to hospitalist on 12/18. Respiratory failure Flash pulmonary edema - s/p extubation - resp care Altered mental status Alcohol intoxication Heroin intoxication -Tox screen significant for a blood alcohol level 138 - [facility] protocol - Monitor on telemetry - Suicide prevautions - likely psych consult when patient is more awake - Blood cultures obtained - UA suggestive of UTI, UC pending, currently on abx Bilateral pulmonary infiltrates ?Aspiration PNA - continue Zosyn - sputum culture pending DVT proph - bilat SCDS, lovenox Discharge Planning: Further reccs pending clinical stabilization. Watch in ICU today, if remains stable overnight likely transfer to medical floor tomorrow.
[2017-12-18] MEDS ORDERED: LORazepam 1 MG Tablet PO PRN (07:59)
[2017-12-18] MEDS ORDERED: Haloperidol Inj 5 MG/ML Ampul IV.PUSH PRN (07:59)
[2017-12-18] MEDS: Chlorhexidine 0.12% Oral Kit 15 ML UDC OROPHARYNG SCH ×2 (08:45→22:12)
[2017-12-18] MEDS: Famotidine PF Inj 20 MG/2 ML Vial IV.PUSH SCH ×2 (08:51→20:25)
[2017-12-18] MEDS: Senna/Docusate Sodium 8.6/50 MG Tablet PO SCH ×2 (08:52→20:24)
[2017-12-18] MEDS: Acetaminophen 325 MG Tablet PO PRN (20:24)
[2017-12-19] MEDS: Piperacil/Tazo 3.375 GM Premix 50 ML IV.SIG SCH ×4 (00:55→18:59)
[2017-12-19] MEDS: Oral Hygiene Kit OROPHARYNG SCH ×4 (01:09→18:59)
[2017-12-19] MEDS: Enoxaparin Inj 40 MG/0.4 ML Syringe SQ SCH (02:55)
[2017-12-19 05:00] LABS: Baso % (Auto) 0.4 % (0.0-2.0); Eos # (Auto) 0.2 th/mm3 (0.0-0.4); Eos % (Auto) 2.4 % (0.0-4.0); Hematocrit 36.8 % (39.0-51.0); Lymph # (Auto) 1.5 th/mm3 (1.0-4.8); Lymph % (Auto) 16.3 % (9.0-44.0); Mean Corpuscular HGB Conc 35.4 % (32.0-36.0); Mean Corpuscular Hemoglobin 32.4 pg (27.0-34.0); Mean Corpuscular Volume 91.7 fL (80.0-100.0); Mean Platelet Volume 8.2 fL (7.0-11.0); Mono # (Auto) 0.6 th/mm3 (0.0-0.9); Mono % (Auto) 6.7 % (0.0-8.0); Neut # (Auto) 6.6 th/mm3 (1.8-7.7); Neut % (Auto) 74.2 % (16.0-70.0); Platelet Count 215 th/mm3 (150-450); Red Blood Count 4.02 mil/mm3 (4.50-5.90); Red Cell Distribution Width 12.5 % (11.6-17.2)
[2017-12-19] MEDS: Acetaminophen 325 MG Tablet PO PRN ×2 (05:08→12:50)
[2017-12-19] MEDS: Chlorhexidine Gluconate 2% 1 Pack (2 Cloths) TOPICAL SCH (05:09)
[2017-12-19] MEDS: Famotidine PF Inj 20 MG/2 ML Vial IV.PUSH SCH ×2 (08:29→21:12)
[2017-12-19] MEDS: Senna/Docusate Sodium 8.6/50 MG Tablet PO SCH ×2 (08:30→21:12)
[2017-12-19] MEDS: Chlorhexidine 0.12% Oral Kit 15 ML UDC OROPHARYNG SCH ×2 (08:33→21:12)
--- NOTE | 2017-12-19 09:18 | XR ---
EXAM DATE: 12/19/2017 9:11 AM EDT AGE/SEX: 32 years / Male INDICATIONS: Cough and short of breath. CLINICAL DATA: This is the patient's subsequent encounter. Patient reports that signs and symptoms h ave been present for 2 days and indicates a pain score of Nonresponsive. MEDICAL/SURGICAL HISTORY: None. None. COMPARISON: [facility], CHEST 1V SINGLE AP, 12/17/2017. . FINDINGS: The endotracheal tube and NG tube have been removed. There has been overall improvement with the bila teral pulmonary infiltrates compared to the prior study. No evidence of pneumothorax. There is some m ild parenchymal changes in the right lung base and left perihilar area. No definite pleural effusions . The heart size is stable. The bony structures are stable. CONCLUSION: Improving bilateral pulmonary infiltrates compared to the prior examination. Electronically signed by: Yousif Love MD 12/19/2017 9:17 AM EDT
--- NOTE | 2017-12-19 09:20 | P.PNIM ---
Subjective Interval history: Mr. Vicente was afebrile overnight; patient with normal saturations >95% on 5L O2 via NC. RR documented as 30. He has rib pain when he coughs and continues to have some blood in his sputum. He denies any history of respiratory illness prior to recent snorting of unknown substance. No blood in sputum prior to intubation. Last IVDU was months ago; no recent fevers, cough, or known blood infection from IVDU previously. Patient also has generalized pain. No abdominal pain, urinary symptoms, or other concerns. Physical Exam Vital signs: Vital Signs 12/18/17 10:00 12/18/17 12:00 12/18/17 14:00 Temperature 98.3 F Pulse Rate 94 H 88 84 Respiratory Rate 18 Blood Pressure 115/68 Pulse Oximetry 93 L 12/18/17 16:00 12/18/17 18:00 12/18/17 20:00 Temperature 98.5 F 98.6 F Pulse Rate 77 77 76 Respiratory Rate 15 21 Blood Pressure 109/57 L 109/58 L Pulse Oximetry 98 96 12/18/17 20:06 12/18/17 22:00 12/19/17 00:00 Temperature 98.5 F Pulse Rate 68 18 L Respiratory Rate 18 Blood Pressure 113/61 Pulse Oximetry 97 97 12/19/17 02:00 12/19/17 04:00 12/19/17 04:54 Temperature 98.4 F Pulse Rate 62 62 85 Respiratory Rate 20 30 H Blood Pressure 116/65 Pulse Oximetry 96 12/19/17 06:00 12/19/17 08:00 Temperature Pulse Rate 88 Respiratory Rate Blood Pressure Pulse Oximetry 97 Intake & Output 12/18/17 12/19/17 12/19/17 18:59 06:59 18:59 Intake Total 100 / 100 1100 / 1100 Output Total 1000 / 1000 800 / 800 Balance -900 / -900 300 / 300 Intake: IV 100 / 100 100 / 100 Zosyn 3.375 GM Premix 50 ML @ 100 / 100 100 / 100 100 mls/hr IV.SIG Q6H DIANN Rx#: [id number] Oral 1000 / 1000 Output: Urine 1000 / 1000 800 / 800 Other: # Voids 3 2 Date of Last Bowel Movement 12/18/17 12/18/17 Narrative: GENERAL: no acute distress SKIN: Warm and dry. EYES: EOM grossly I; no injection ENT: O2 via NC NECK: No appreciated JVD or lymphadenopathy CARDIOVASCULAR: Regular rate and rhythm without murmurs. No LE edema. Normal perfusion RESPIRATORY: CTAB; decreased breath sounds bilaterally inferiorly vs shallow breathing. No rales or congestion. Cough during exam course and elicited rib pain. O2 desat to 89 when coughing. GASTROINTESTINAL: Abdomen soft, non-tender, nondistended. MUSCULOSKELETAL: Grossly normal ROM and motor function - Urinary Catheter Management Indwelling Urethral Catheter Cath placed during this visit: yes, but has since been removed by the nurse Reason for continuing: Decision to DC catheter Insertion date: 12/17/17 Insertion time: 01:00 Removal date: 12/17/17 Removal time: 17:45 Results - Labs CBC & Chem 7: 12/19/17 04:36 12/18/17 03:50 Laboratory Results - last 24 hr 12/19/17 04:36 WBC 9.0 RBC 4.02 L Hgb 13.0 Hct 36.8 L MCV 91.7 MCH 32.4 MCHC 35.4 RDW 12.5 Plt Count 215 MPV 8.2 Neut % (Auto) 74.2 H Lymph % (Auto) 16.3 [place] % (Auto) 6.7 Eos % (Auto) 2.4 Baso % (Auto) 0.4 Neut # (Auto) 6.6 Lymph # (Auto) 1.5 [place] # (Auto) 0.6 Eos # (Auto) 0.2 Baso # (Auto) 0.0 WBC Differential . Differential Comment Auto diff final Microbiology 12/17/17 10:50 Sputum - Endotracheal Gram Stain - Final 12/17/17 10:50 Sputum - Endotracheal Sputum Culture - Preliminary Staphylococcus aureus 12/17/17 03:50 Sputum - Endotracheal Gram Stain - Final 12/17/17 03:50 Sputum - Endotracheal Sputum Culture - Preliminary Staphylococcus aureus 12/17/17 12:00 Blood - Peripheral Aerobic Blood Culture - Preliminary No growth in 1 day 12/17/17 12:00 Blood - Peripheral Anaerobic Blood Culture - Preliminary No growth in 1 day 12/17/17 11:55 Blood - Peripheral Aerobic Blood Culture - Preliminary No growth in 1 day 12/17/17 11:55 Blood - Peripheral Anaerobic Blood Culture - Preliminary No growth in 1 day 12/17/17 01:30 Catheterized Urine Urine Culture - Preliminary No growth in 24 hours Assessment and Plan - Plan In summary this is a Ihsan Fierro who was brought to [place] ED by EMS for apparent overdose. Patient was apparently found at a hotel room unresponsive; responded to IV Narcan. Upon arrival to the ER he was lethargic, actively vomiting, and saturating in the 70s. He was intubated. Chest x-ray showed flash pulmonary edema, typically seen for heroine overdose. Patient was admitted by critical care, and then care transferred to hospitalist on 12/18. Respiratory failure Impression: Suspect Flash pulmonary edema from heroin overdose. Initially intubated; has some bloody sputum and continued shortness of breath when O2 removed subsequently CXR 12/17 with bilateral infiltrates. s/p Lasix 20 mg IV -Will repeat CXR -Will give incentive spirometry -Will consider additional lasix -monitor sputum culture -staph this morning; susceptibilities pending -Monitor blood culture -Continue empiric antibiotics -Zosyn for possible aspiration -Will cover with Vancomycin until resulted due to high NC O2 requirement and persistent cough in setting of recent intubation Altered mental status Impression: Resolved currently. Suspect heroin and alcohol intoxications. UDS negative. Alcohol level in blood elevated. Responded to Narcan in ED but continued lethargy prompted intubation; now extubated with normal mental status SIRS Impression: Initial sinus tachycardia, leukocytosis; now resolved -Will trend CBC and monitor VS Psychiatric illness Impression: Tic disorder and anxiety per patient -Will continue home Fluoxetine and Buspirone -Will consider Psych consult Impression: UA suggestive of possible UTI; culture negative x1 day -Will monitor urine culture DVT proph - bilat SCDS, lovenox Code Status: Full code
[2017-12-19] MEDS: Vancomycin Inj 1,000 MG in Sodium Chlor 0.9% Inj 250 ML IV.SIG SCH ×2 (10:56→21:12)
[2017-12-20] MEDS: Enoxaparin Inj 40 MG/0.4 ML Syringe SQ SCH (03:00)
[2017-12-20 05:17] LABS: Baso % (Auto) 0.5 % (0.0-2.0); Eos # (Auto) 0.2 th/mm3 (0.0-0.4); Eos % (Auto) 2.1 % (0.0-4.0); Lymph # (Auto) 1.2 th/mm3 (1.0-4.8); Lymph % (Auto) 12.7 % (9.0-44.0); Mean Corpuscular HGB Conc 34.3 % (32.0-36.0); Mean Corpuscular Hemoglobin 31.4 pg (27.0-34.0); Mean Corpuscular Volume 91.7 fL (80.0-100.0); Mean Platelet Volume 8.1 fL (7.0-11.0); Mono # (Auto) 0.5 th/mm3 (0.0-0.9); Mono % (Auto) 5.2 % (0.0-8.0); Neut # (Auto) 7.4 th/mm3 (1.8-7.7); Neut % (Auto) 79.5 % (16.0-70.0); Platelet Count 261 th/mm3 (150-450); Red Blood Count 4.14 mil/mm3 (4.50-5.90); Red Cell Distribution Width 12.3 % (11.6-17.2); White Blood Count 9.3 th/mm3 (4.0-11.0)
[2017-12-20] MEDS: Piperacil/Tazo 3.375 GM Premix 50 ML IV.SIG SCH ×4 (05:27→17:53)
[2017-12-20] MEDS: Chlorhexidine Gluconate 2% 1 Pack (2 Cloths) TOPICAL SCH (05:28)
[2017-12-20] MEDS: Oral Hygiene Kit OROPHARYNG SCH ×3 (05:29→17:54)
--- NOTE | 2017-12-20 05:35 | XR ---
EXAM DATE: 12/20/2017 5:25 AM EDT AGE/SEX: 32 years / Male INDICATIONS: Shortness of breath. CLINICAL DATA: This is the patient's subsequent encounter. Patient reports that signs and symptoms h ave been present for 3 days and indicates a pain score of Nonresponsive. MEDICAL/SURGICAL HISTORY: None. None. [place] [facility] [place]. [facility] [place] 1[place]INGLE [place], 12/17/2017. . FINDINGS: Portable AP view of the chest demonstrates a normal-sized cardiac silhouette. EKG lines overlie the p atient. There is patchy opacity at the right lung base and left upper and midlung zone. No pleural ef fusion or pneumothorax is visualized. The bones demonstrate no acute finding. CONCLUSION: Stable chest x-ray compared to yesterday's examination with mild residual airspace opacity bilaterall y. Electronically signed by: Ihsan Gongora MD 12/20/2017 5:34 AM EDT
[2017-12-20 05:37] LABS: Alanine Aminotransferase 21 U/L (12-78); Albumin 3.4 g/dL (3.4-5.0); Anion Gap 9 meq/L (5-15); Aspartate Aminotransferase 12 U/L (15-37); Blood Urea Nitrogen 11 mg/dL (7-18); Calcium 8.5 mg/dL (8.5-10.1); Carbon Dioxide 26.7 meq/L (21.0-32.0); Chloride 109 meq/L (98-107); Glomerular Filtration Rate Greater Than 89 mL/min (>89); Glucose,Random 100 mg/dL (74-106); Potassium 3.7 meq/L (3.5-5.1); Sodium 145 meq/L (136-145)
[2017-12-20 05:39] LABS: Alkaline Phosphatase 66 U/L (45-117); Total Protein 6.9 g/dL (6.4-8.2)
[2017-12-20] MEDS: Acetaminophen 325 MG Tablet PO PRN (08:14)
[2017-12-20] MEDS: Famotidine PF Inj 20 MG/2 ML Vial IV.PUSH SCH ×2 (08:15→20:56)
[2017-12-20] MEDS: Senna/Docusate Sodium 8.6/50 MG Tablet PO SCH ×3 (08:15→20:57)
[2017-12-20] MEDS: Chlorhexidine 0.12% Oral Kit 15 ML UDC OROPHARYNG SCH (08:15)
--- NOTE | 2017-12-20 09:11 | P.PNIM ---
Subjective Interval history: Mr. Vicente had persistent shortness of breath overnight; this is worse when patient has activity such as using bathroom and desaturates to 80's; takes time to return saturations to 90's. Placed on simple mask; O2 at 4L. Patient has persistent cough associated with chest pain. Patient states he has been urinating less; he is agreeable in managing output. No chest pain, abdominal pain, or other concerns. Physical Exam Vital signs: Vital Signs 12/19/17 10:00 12/19/17 12:00 12/19/17 14:00 Temperature 98.4 F Pulse Rate 62 80 74 Respiratory Rate 26 H Blood Pressure 109/57 L Pulse Oximetry 92 L 12/19/17 16:00 12/19/17 18:00 12/19/17 20:00 Temperature 98.1 F 98 F Pulse Rate 62 74 72 Respiratory Rate 20 Blood Pressure 103/58 L 115/57 L Pulse Oximetry 97 97 12/19/17 20:28 12/20/17 00:00 12/20/17 04:00 Temperature 98.2 F 98 F Pulse Rate 70 70 Respiratory Rate 16 22 Blood Pressure 126/58 L 109/69 Pulse Oximetry 97 96 97 Intake & Output 12/19/17 12/20/17 12/20/17 18:59 06:59 18:59 Intake Total 770 / 770 1572 / 1572 Balance 770 / 770 1572 / 1572 Weight 87.2 kg Intake: IV 50 / 50 400 / 400 Zosyn 3.375 GM Premix 50 ML @ 50 / 50 150 / 150 100 mls/hr IV.SIG Q6H DIANN Rx#: [id number] Vancomycin Inj 1,000 MG In NS 250 / 250 Inj 250 ML @ 250 mls/hr IV.SIG Q12H DIANN Rx#:[id number] Oral 720 / 720 650 / 650 Other 522 / 522 Other: # Voids 3 4 Date of Last Bowel Movement 12/18/17 12/20/17 # Bowel Movements 2 Narrative: GENERAL: no acute distress SKIN: Warm and dry. EYES: EOM grossly I; no injection ENT: O2 via mask/NC NECK: No appreciated JVD or lymphadenopathy CARDIOVASCULAR: Regular rate and rhythm without murmurs. No LE edema. Normal perfusion RESPIRATORY: Decreased breath sounds bilaterally inferiorly vs shallow breathing. No wheezing or congestion. Cough during exam course and elicited rib pain. O2 sats in low 90's. GASTROINTESTINAL: Abdomen soft, non-tender, nondistended. MUSCULOSKELETAL: Grossly normal ROM and motor function - Urinary Catheter Management Indwelling Urethral Catheter Cath placed during this visit: yes, but has since been removed by the nurse Reason for continuing: Decision to DC catheter Insertion date: 12/17/17 Insertion time: 01:00 Removal date: 12/17/17 Removal time: 17:45 Results - Labs CBC & Chem 7: 12/20/17 04:50 12/20/17 04:50 Laboratory Results - last 24 hr 12/20/17 12/20/17 04:50 04:50 WBC 9.3 RBC 4.14 L Hgb 13.0 Hct 38.0 L MCV 91.7 MCH 31.4 MCHC 34.3 RDW 12.3 Plt Count 261 MPV 8.1 Neut % (Auto) 79.5 H Lymph % (Auto) 12.7 [place] % (Auto) 5.2 Eos % (Auto) 2.1 Baso % (Auto) 0.5 Neut # (Auto) 7.4 Lymph # (Auto) 1.2 [place] # (Auto) 0.5 Eos # (Auto) 0.2 Baso # (Auto) 0.0 WBC Differential . Differential Comment Auto diff final Sodium 145 Potassium 3.7 Chloride 109 H Carbon Dioxide 26.7 Anion Gap 9 BUN 11 Creatinine 0.92 Estimated GFR Greater than 89 Random Glucose 100 Calcium 8.5 Total Bilirubin 0.8 AST 12 L ALT 21 Alkaline Phosphatase 66 Total Protein 6.9 D Albumin 3.4 Microbiology 12/17/17 10:50 Sputum - Endotracheal Gram Stain - Final 12/17/17 10:50 Sputum - Endotracheal Sputum Culture - Final Staphylococcus aureus 12/17/17 03:50 Sputum - Endotracheal Gram Stain - Final 12/17/17 03:50 Sputum - Endotracheal Sputum Culture - Final Staphylococcus aureus 12/17/17 01:30 Catheterized Urine Urine Culture - Final No growth in 48 hours 12/17/17 12:00 Blood - Peripheral Aerobic Blood Culture - Preliminary No growth in 2 days 12/17/17 12:00 Blood - Peripheral Anaerobic Blood Culture - Preliminary No growth in 2 days 12/17/17 11:55 Blood - Peripheral Aerobic Blood Culture - Preliminary No growth in 2 days 12/17/17 11:55 Blood - Peripheral Anaerobic Blood Culture - Preliminary No growth in 2 days - Imaging Impressions Chest X-Ray 12/19/17 00:00 CONCLUSION: Improving bilateral pulmonary infiltrates compared to the prior examination. Chest X-Ray 12/20/17 06:00 CONCLUSION: Stable chest x-ray compared to yesterday's examination with mild residual airspace opacity bilaterally. Assessment and Plan - Plan In summary this is a Ihsan Fierro who was brought to [place] ED by EMS for apparent overdose. Patient was apparently found at a hotel room unresponsive; responded to IV Narcan. Upon arrival to the ER he was lethargic, actively vomiting, and saturating in the 70s. He was intubated. Chest x-ray showed flash pulmonary edema, typically seen for heroine overdose. Patient was admitted by critical care, and then care transferred to hospitalist on 12/18. Respiratory failure 12/20- Persistent difficulty breathing; O2 saturations in low 90 Impression: Suspect Flash pulmonary edema from heroin overdose. Initially intubated; has some bloody sputum and continued shortness of breath when O2 removed subsequently. Possible aspiration also CXR 12/17 with bilateral infiltrates. s/p Lasix 20 mg IV CXR 12/20 stable; continued airspace disease bilaterally and opacity at R lung base and left upper/mid lung -Will give incentive spirometry -Will give an additional IV Lasix 40mg x1 -monitor sputum culture -staph resistant to Clinda -Monitor blood culture- negative x2 days -Continue empiric antibiotics -Zosyn for possible aspiration -Will cover with Vancomycin until resulted due to high NC O2 requirement and persistent cough in setting of recent intubation -Since not improving as rapidly as anticipated, will evaluate further with CT chest -Will empirically start Solumedrol 40mg IV BID -WIll monitor and consider pulmonary consult Altered mental status Impression: Resolved. Suspect heroin and alcohol intoxications. UDS negative. Alcohol level in blood elevated. Responded to Narcan in ED but continued lethargy prompted intubation; now extubated with normal mental status SIRS Impression: Initial sinus tachycardia, leukocytosis; now resolved -Will trend CBC and monitor VS Psychiatric illness Impression: Tic disorder and anxiety per patient -Will continue home Fluoxetine and Buspirone -Will consider Psych consult DVT proph - bilat SCDS, lovenox Code Status: Full code
[2017-12-20] MEDS: MethylPREDNISolone Sod Succinate Inj 40 MG/ML Vial IV.PUSH SCH ×2 (09:39→21:36)
[2017-12-20] MEDS: Vancomycin Inj 1,000 MG in Sodium Chlor 0.9% Inj 250 ML IV.SIG SCH ×2 (09:39→21:36)
--- NOTE | 2017-12-20 17:32 | CT ---
EXAM DATE: 12/20/2017 5:29 PM EDT AGE/SEX: 32 years / Male INDICATIONS: Chest pains, pulmonary disease. CLINICAL DATA: This is the patient's initial encounter. Patient reports that signs and symptoms have been present for 1 day and indicates a pain score of 6/10. MEDICAL/SURGICAL HISTORY: None. None. RADIATION DOSE: 14.94 CTDI (mGy) COMPARISON: [facility] [place], CHEST 1V SINGLE AP, 12/20/2017. . TECHNIQUE: Multiple contiguous axial images were obtained through the chest during bolus infusion of 68 ml Omnipaque 350 (iohexol) nonionic water-soluble contrast as a single exam dose. Images were obtained in suspended respiration using multiple row detector helical technique. Using automated exp osure control and adjustment of the mA and/or kV according to patient size, radiation dose was kept a s low as reasonably achievable to obtain optimal diagnostic quality images. DICOM format image data is available electronically for review and comparison. FINDINGS: No adenopathy. There are patchy areas of consolidation in the lower lobes as well as the dependent po rtion of the right upper lobe. No pleural effusions. The osseous structures are intact. CONCLUSION: 1. A lateral airspace disease is seen as above. Electronically signed by: Buck Whaley MD 12/20/2017 5:31 PM EDT
[2017-12-21] MEDS: Piperacil/Tazo 3.375 GM Premix 50 ML IV.SIG SCH ×4 (00:27→17:22)
[2017-12-21] MEDS: Enoxaparin Inj 40 MG/0.4 ML Syringe SQ SCH (03:26)
[2017-12-21] MEDS: Chlorhexidine Gluconate 2% 1 Pack (2 Cloths) TOPICAL SCH (03:29)
--- NOTE | 2017-12-21 09:07 | P.PNIM ---
Subjective Interval history: Mr. Vicente was afebrile overnight; O2 this morning via NC at ~5L. Patient reports that he feels his breathing has improved some and that he gets less short of breath when moving to use bathroom. He is still urinating frequently. No chest pain. No stool concerns. Physical Exam Vital signs: Vital Signs 12/20/17 12:00 12/20/17 16:00 12/20/17 20:00 Temperature 98 F 98.2 F 98 F Pulse Rate 71 67 64 Respiratory Rate 21 22 24 Blood Pressure 111/66 112/65 122/60 Pulse Oximetry 96 93 L 94 L 12/20/17 20:55 12/21/17 00:00 12/21/17 04:00 Temperature 98 F 98.2 F Pulse Rate 66 68 Respiratory Rate 22 22 Blood Pressure 118/62 110/80 Pulse Oximetry 97 97 Intake & Output 12/20/17 12/21/17 12/21/17 18:59 06:59 18:59 Intake Total 2548 / 2548 1288 / 1288 300 / 300 Output Total 2975 / 2975 1400 / 1400 Balance -427 / -427 -112 / -112 300 / 300 Weight 67.4 kg Intake: IV 350 / 350 50 / 50 300 / 300 Zosyn 3.375 GM Premix 50 ML @ 100 / 100 50 / 50 50 / 50 100 mls/hr IV.SIG Q6H DIANN Rx#: [id number] Vancomycin Inj 1,000 MG In NS 250 / 250 250 / 250 Inj 250 ML @ 250 mls/hr IV.SIG Q12H DIANN Rx#:[id number] Oral 1710 / 1710 750 / 750 Other 488 / 488 488 / 488 Output: Urine 2975 / 2975 1400 / 1400 Other: # Voids 5 Date of Last Bowel Movement 12/20/17 12/20/17 # Bowel Movements 2 Narrative: GENERAL: no acute distress SKIN: Warm and dry. EYES: EOM grossly I; no injection ENT: O2 via NC NECK: No appreciated JVD or lymphadenopathy CARDIOVASCULAR: Regular rate and rhythm without murmurs. No LE edema. Normal perfusion RESPIRATORY: CTAB; improved aeration. No wheezing or congestion. Cough during exam; clear sputum. O2 sats in mid 90's. GASTROINTESTINAL: Abdomen soft, non-tender, nondistended. MUSCULOSKELETAL: Grossly normal ROM and motor function - Urinary Catheter Management Indwelling Urethral Catheter Cath placed during this visit: yes, but has since been removed by the nurse Reason for continuing: Decision to DC catheter Insertion date: 12/17/17 Insertion time: 01:00 Removal date: 12/17/17 Removal time: 17:45 Results - Labs CBC & Chem 7: 12/20/17 04:50 12/20/17 04:50 Microbiology 12/17/17 12:00 Blood - Peripheral Aerobic Blood Culture - Preliminary No growth in 3 days 12/17/17 12:00 Blood - Peripheral Anaerobic Blood Culture - Preliminary No growth in 3 days 12/17/17 11:55 Blood - Peripheral Aerobic Blood Culture - Preliminary No growth in 3 days 12/17/17 11:55 Blood - Peripheral Anaerobic Blood Culture - Preliminary No growth in 3 days - Imaging Impressions Chest CT 12/20/17 00:00 CONCLUSION: 1. A lateral airspace disease is seen as above. Assessment and Plan - Plan In summary this is a Ihsan Fierro who was brought to [place] ED by EMS for apparent overdose. Patient was apparently found at a hotel room unresponsive; responded to IV Narcan. Upon arrival to the ER he was lethargic, actively vomiting, and saturating in the 70s. He was intubated. Chest x-ray showed flash pulmonary edema, typically seen for heroine overdose. Patient was admitted by critical care, and then care transferred to hospitalist on 12/18. Respiratory failure 12/20- Persistent difficulty breathing; O2 saturations in low 90 12/21- improved symptoms per patient with less shortness of breath Impression: Suspect Flash pulmonary edema from heroin overdose. Initially intubated; has some bloody sputum and continued shortness of breath when O2 removed subsequently. Possible aspiration also CXR 12/17 with bilateral infiltrates. s/p Lasix 20 mg IV CXR 12/20 stable; continued airspace disease bilaterally and opacity at R lung base and left upper/mid lung s/p 40mg IV lasix 12/20 CT chest 12/20- patchy consolidation in dependent RUL and lower lobes. No effusions -Will give incentive spirometry -monitor sputum culture -staph resistant to Clinda -Monitor blood culture- negative x4 days -Continue empiric antibiotics -Zosyn for possible aspiration -Will cover with Vancomycin until resulted due to high NC O2 requirement and persistent cough in setting of recent intubation -Continue empiric Solumedrol 40mg IV BID -Will transfer to floor with plan -Anticipate plan to transition to oral Augmentin and oral Prednisone at discharge to cover in case of infectious process and /or inflammation from aspiration Altered mental status Impression: Resolved. Suspect heroin and alcohol intoxications. UDS negative. Alcohol level in blood elevated. Responded to Narcan in ED but continued lethargy prompted intubation; now extubated with normal mental status SIRS Impression: Resolved. Initial sinus tachycardia, leukocytosis -Will trend CBC and monitor VS Psychiatric illness Impression: Tic disorder and anxiety per patient -Will continue home Fluoxetine and Buspirone DVT proph - bilat SCDS, lovenox Code Status: Full Discharge Planning: Improving; anticipate lack of need for O2 in 1-2 days Addendum Patient was re-evaluated this afternoon; he was weaned to 2L O2 with sats in the upper 90's. He states that he feels much improved. Per nursing staff at bedside, steroids seemed to help significantly.
[2017-12-21] MEDS: Famotidine PF Inj 20 MG/2 ML Vial IV.PUSH SCH ×2 (10:09→20:12)
[2017-12-21] MEDS: Vancomycin Inj 1,000 MG in Sodium Chlor 0.9% Inj 250 ML IV.SIG SCH ×2 (10:09→21:02)
[2017-12-21] MEDS: Senna/Docusate Sodium 8.6/50 MG Tablet PO SCH ×2 (10:09→20:13)
[2017-12-21] MEDS: MethylPREDNISolone Sod Succinate Inj 40 MG/ML Vial IV.PUSH SCH ×2 (10:09→21:03)
[2017-12-22] MEDS: Piperacil/Tazo 3.375 GM Premix 50 ML IV.SIG SCH ×2 (01:30→06:07)
[2017-12-22] MEDS: Enoxaparin Inj 40 MG/0.4 ML Syringe SQ SCH (02:21)
[2017-12-22] MEDS: MethylPREDNISolone Sod Succinate Inj 40 MG/ML Vial IV.PUSH SCH (09:41)
[2017-12-22] MEDS: Vancomycin Inj 1,000 MG in Sodium Chlor 0.9% Inj 250 ML IV.SIG SCH (09:41)
[2017-12-22] MEDS: Famotidine PF Inj 20 MG/2 ML Vial IV.PUSH SCH (09:41)
[2017-12-22] MEDS: Senna/Docusate Sodium 8.6/50 MG Tablet PO SCH (09:41)
[2017-12-22 11:59] VITALS: BP 119/58; PULSE 65; RESP 20; TEMP 97.9; O2SAT 93
--- NOTE | 2017-12-22 12:26 | P.DS ---
Date of admission: 12/17/17 02:13 Primary care physician: UNKNOWN Brief History from admission: HPI from the admitting physician: 32 [id number] male presents via EMS after an apparent overdose. According to EMS the patient met a female paper sealer earlier genie, they snorted a white substance at the hotel room and then the patient became unresponsive. EMS states when they arrived the patient was unresponsive, they gave Narcan, total of 2 mg intravenously, the patient awakened. They state the patient was hypoxic with an O2 sat in the 70s via nonrebreather, and vomited several times. Upon arrival the patient was lethargic, responds to painful stimuli, but falls asleep. He was actively vomiting and was noted to be hypoxic in the 70s. The patient was intubated by ED attending, will be protection and respiratory failure. Chest x-ray shows pattern of flash pulmonary edema typical for heroine overdose. No further information is obtainable from the patient. Patient update on day of discharge: Patient reports he is feeling great. He is on room air. No shortness of breath. DS: Diagnosis - Discharge Diagnosis (1) Drug overdose Status: Acute (2) Acidosis, lactic Status: Acute (3) Acute respiratory distress Status: Acute (4) Hypoxia Status: Acute (5) Pneumonia Status: Acute DS: Medications - Discharge Medications Prescriptions: sulfamethoxazole-trimethoprim [Bactrim] 1 tab PO Q12H #6 tab DS: Summary Hospital Course: In summary this is a Ihsan Fierro who was brought to [place] ED by EMS for apparent overdose. Patient was apparently found at a hotel room unresponsive; responded to IV Narcan. Upon arrival to the ER he was lethargic, actively vomiting, and saturating in the 70s. He was intubated. Chest x-ray showed flash pulmonary edema, typically seen for heroine overdose. Patient was admitted by critical care, and then care transferred to hospitalist on 12/18. Respiratory failure 12/20- Persistent difficulty breathing; O2 saturations in low 90 12/21- improved symptoms per patient with less shortness of breath Impression: Suspect Flash pulmonary edema from heroin overdose. Initially intubated; has some bloody sputum and continued shortness of breath when O2 removed subsequently. Possible aspiration also CXR 12/17 with bilateral infiltrates. s/p Lasix 20 mg IV CXR 12/20 stable; continued airspace disease bilaterally and opacity at R lung base and left upper/mid lung s/p 40mg IV lasix 12/20 CT chest 12/20- patchy consolidation in dependent RUL and lower lobes. No effusions -Patient treated with steroids and antibiotics. -He is discharged on Bactrim to complete the course of treatment. Altered mental status Resolved. Suspect heroin and alcohol intoxications. UDS negative. Alcohol level in blood elevated. Responded to Narcan in ED but continued lethargy prompted intubation; now extubated with normal mental status Psychiatric illness Impression: Tic disorder and anxiety per patient -Will continue home Fluoxetine and Buspirone - Time Spent with Patient Total time spent providing and/or coordinating discharge services: Less than 30 minutes - Quality: VTE Deep Vein Thrombosis/Pulmonary Embolism Present on Admission: No Exam Vital signs: Vital Signs 12/21/17 16:00 12/21/17 20:00 12/22/17 00:00 Temperature 97.8 F 97.7 F Pulse Rate 68 62 65 Respiratory Rate 20 20 Blood Pressure 114/64 137/63 Pulse Oximetry 94 L 94 L 12/22/17 04:00 12/22/17 08:00 12/22/17 10:43 Temperature 98.3 F 98.0 F Pulse Rate 60 60 Respiratory Rate 20 18 Blood Pressure 115/65 126/58 L Pulse Oximetry 94 L 95 95 12/22/17 11:59 Temperature 97.9 F Pulse Rate 65 Respiratory Rate 20 Blood Pressure 119/58 L Pulse Oximetry 93 L Intake & Output 12/21/17 12/22/17 12/22/17 18:59 06:59 18:59 Intake Total 650 / 650 350 / 350 250 / 250 Balance 650 / 650 350 / 350 250 / 250 Intake: IV 650 / 650 350 / 350 250 / 250 Zosyn 3.375 GM Premix 50 ML @ 150 / 150 100 / 100 100 mls/hr IV.SIG Q6H DIANN Rx#: [id number] Vancomycin Inj 1,000 MG In NS 500 / 500 250 / 250 250 / 250 Inj 250 ML @ 250 mls/hr IV.SIG Q12H DIANN Rx#:[id number] Other: Date of Last Bowel Movement 12/20/17 12/20/17 Narrative: GENERAL: This is a well-nourished, well-developed patient, in no apparent distress. CARDIOVASCULAR: Normal rate and regular rhythm without murmurs, gallops, or rubs. RESPIRATORY: Good respiratory efforts. Breath sounds equal and clear to auscultation bilaterally. GASTROINTESTINAL: Abdomen soft, non-tender, non-distended. Normal active bowel sounds MUSCULOSKELETAL: Extremities without cyanosis, or edema. NEURO: Alert & Oriented x4 to person, place, time, situation. Moves all ext x4 PSYCH: Appropriate mood and affect. Results Procedures completed during hospitalization: Intubation and extubation - Impressions ITS Impressions Chest CT 12/20/17 00:00 CONCLUSION: 1. A lateral airspace disease is seen as above. Chest X-Ray 12/20/17 06:00 CONCLUSION: Stable chest x-ray compared to yesterday's examination with mild residual airspace opacity bilaterally. Discharge Plan - Discharge Disposition Patient Disposition: 01 Discharge Home - Discharge Condition Condition: Critical - Discharge Order Discharge Orders: Discharge Order (Routine); Ordered 12/22/17 Ordered By: Lizette Grimes - Physicians Team Primary Care Provider: UNKNOWN, Attending Provider: Lizette Grimes
== END 2017-12-22 14:17 | disposition home or self-care (01) ==
LOC: NEPE 00:21 → EDBD 02:13 → NEDA 02:13 → N03 03:28 → N05 12-21 23:39
PROVIDERS: ADMIT Family Medicine; ATTEND Family Medicine